=== PATIENT | male | born 1945 | race Caucasian/White ===

== ENCOUNTER 2016-09-12 09:17 | Emergency (ER) | payer MEDICARE, BC ==
[2016-09-12] MEDS ORDERED: SODIUM CHLORIDE 0.9% 1,000 ML IV ONE ×2 (10:26→13:05)
== END 2016-09-12 14:34 | disposition home or self-care (01) ==
DX: E86.0 Dehydration (principal); F43.20 Adjustment disorder, unspecified; I10 Essential (primary) hypertension; Z79.899 Other long term (current) drug therapy; Z79.82 Long term (current) use of aspirin